=== PATIENT | male | born 1975 | race African-American/Black ===

== ENCOUNTER 2017-03-18 05:55 | Emergency (ER) | payer BC ==
[~2017-03-18] VITALS: Ht 180.3 cm; Wt 107.4 kg
[~2017-03-18 05:55] MED LIST: ALBU4TAB10 PO; AMBUNK PO; PRLSRUNK; ZYRUNK
[2017-03-18 05:57] VITALS: Ht 180.3 cm; Wt 107.4 kg
[2017-03-18] MEDS ORDERED: CETI10TA84 PO (06:40)
[2017-03-18] MEDS ORDERED: ESOM20CA PO (06:40)
[2017-03-18] MEDS ORDERED: VNTHFA/IN INH (06:40)
[2017-03-18] MEDS ORDERED: ONDANSETRON INJ 2 MG/ML 2 ML VIAL IV STA (06:44)
[2017-03-18] MEDS ORDERED: SODIUM CHLORIDE 0.9% 1000ML 1,000 ML IV ONE (06:44)
[2017-03-18] MEDS ORDERED: MoRPHine SULFATE 4 MG/ML 1 ML CARP\\VIAL IV STA ×2 (06:44→07:25)
[2017-03-18] MEDS ORDERED: SODIUM CHLORIDE 0.9% 1000ML 1,000 ML IV STA (06:44)
--- NOTE | 2017-03-18 06:53 | EMERGENCY ROOM VISIT NOTE ---
History Report prepared by Deo: Amado Ramey Under the Supervision of: Dr. Jeb Noriega M.D. First contact with patient: 06:40 Chief Complaint: ABDOMINAL PAIN Stated Complaint: SEVERE STOMACH PAIN Nursing Triage Summary: Patient reports abdominal pain since 0100. Patient tried using an enema but pain did not go away. Reports N/V. History of Present Illness The patient is a 41 year old male who presents to the Emergency Room with complaints of persistent and diffuse abdominal pain that began this morning at 0100, 5.5 hours prior to arrival. He also notes vomiting two times today since his abdominal pain began. The patient did have a normal bowel movement last night, but states that he attempted to use an Enema this morning. He denies noticing any black coloration or blood in this stool. This did not improve his pain. He denies any current back pain, chest pain, shortness of breath, fevers, or headaches. He does note having a Lap-Band placed roughly five years ago. Source of History: patient Onset: 5.5 hours [employer] Position: abdomen (Diffuse) Timing: other (Persistent) Associated Symptoms: + vomiting, No headache, No chest pain, No SOB, No back pain Review of Systems See HPI for pertinent positives & negatives. A total of 10 systems reviewed and were otherwise negative. Past Medical & Surgical Surgical Problems: (1) Hx of laparoscopic gastric banding Old medical records were reviewed. Nurse's notes were reviewed and I agree with. Family History No pertinent family history recorded. Social History Smoking Status: Never Smoker Drug Use: none Housing Status: lives with family Occupation Status: employed Current/Historical Medications Scheduled Cetirizine (Zyrtec), 10 MG PO DAILY Scheduled PRN Albuterol Hfa (Ventolin Hfa), 2 PUFFS INH Q6H PRN for SOB/Wheezing Esomeprazole Magnesium (Nexium), 20 MG PO DAILY PRN for Heartburn Allergies Uncoded Allergies: FISH (Allergy, Mild, RESP DIFF, 04/10/09) Physical Exam Vital Signs Date Time Temp Pulse Resp B/P (MAP) Pulse Ox O2 Delivery O2 Flow Rate FiO2 03/18/17 10:51 62 16 132/80 98 03/18/17 09:43 75 16 138/74 97 Room Air 03/18/17 08:07 52 16 150/92 97 Room Air 7/2/17 05:57 65 18 154/86 98 Room Air Physical Exam General: Well developed well nourished, uncomfortable appearing. Breathing comfortably on room air. Normal speech HEENT: Normal cephalic atraumatic. Pupils are equal round and reactive to light. Extraocular movements are intact. Oropharynx is pink with moist mucous membranes. No swelling of the mouth lips or tongue. Neck: Supple with a midline trachea. No meningeal signs or stiffness, no JVD or bruits. No Stridor. Chest: Clear to auscultation bilaterally. No wheezes or rhonchi. No increased work of breathing. Heart: regular rate and rhythm. Abdomen: Soft, diffusely tender. Nondistended without rebound guarding or rigidity. The lap band is palpable but nontender in the right upper abdomen Extremities: No cyanosis clubbing or edema. No calf tenderness or assymetry Spine/Back. Non tender to palpation. No CVA tenderness Skin: Good turgor without rashes. Neurologic exam: Cranial nerves two through 12 are intact. Motor and sensation are intact and symmetrical throughout. Medical Decision & Procedures ER Provider Diagnostic Interpretation: Radiology results as stated below per my review and radiologist interpretation: CT SCAN OF THE ABDOMEN AND PELVIS WITHOUT IV CONTRAST CLINICAL HISTORY: Generalized abdominal pain. COMPARISON STUDY: Abdominal ultrasound dated 08/07/2007. TECHNIQUE: CT scan of the abdomen and pelvis is performed from the lung bases to the proximal femora. Images are reviewed in the axial, sagittal, and coronal planes. IV contrast was not administered for this examination as per the referring clinician. Note that the examination was performed in suboptimal fashion without oral and IV contrast. Automated dose control exposure was utilized. CT DOSE: 725.04 mGy.cm FINDINGS: Lung bases: The heart is normal in size and without pericardial effusion. The lung bases are clear. Liver: The unenhanced liver is normal in size, contour, and attenuation. There is no intrahepatic biliary ductal dilatation. Gallbladder: Unremarkable. Spleen: Normal in size and attenuation. Pancreas: Unremarkable. Adrenal glands: Unremarkable. Kidneys: The unenhanced kidneys are normal in size and without hydronephrosis. There are no renal calculi identified. There is no evidence of contour deforming renal mass lesion. Abdominal vasculature: The abdominal aorta is normal in course and caliber. Stomach and bowel: Wall thickening is suggested in the distal esophagus. There is a moderate hiatal hernia. A gastric band is in place. The reservoir is noted in the right ventral abdominal wall. The duodenum is normal in configuration. No bowel obstruction is identified. The appendix is well-visualized and normal. Peritoneum: There is no intraperitoneal free air or abdominal ascites. There is a small fat-containing umbilical hernia. Lymphadenopathy: None. Pelvic viscera: The bladder, prostate, and seminal vesicles are normal as imaged. Skeletal structures: No lytic or blastic lesions are seen. IMPRESSION: 1. Suboptimal examination without oral and IV contrast. 2. There are no acute infectious or inflammatory findings in the abdomen or pelvis. 3. A gastric band is in place. No bowel obstruction is seen. 4. There is a moderate hiatal hernia. Circumferential wall thickening is suggested in the distal esophagus. Correlate clinically for evidence of esophagitis. If further assessment is desired then endoscopy would be appropriate. Electronically signed by: Jama Austin M.D. 03/18/2017 7:47 AM Dictated Date/Time: 03/18/2017 7:40 AM Laboratory Results 03/18/17 06:28 Red Blood Count 5.89, Mean Corpuscular Volume 86.4, Mean Corpuscular Hemoglobin 29.7, Mean Corpuscular Hemoglobin Concent 34.4, Mean Platelet Volume 10.9, Neutrophils (%) (Auto) 66.2, Lymphocytes (%) (Auto) 28.3, Monocytes (%) (Auto) 3.7, Eosinophils (%) (Auto) 1.2, Basophils (%) (Auto) 0.3, Neutrophils # (Auto) 4.31, Lymphocytes # (Auto) 1.84, Monocytes # (Auto) 0.24, Eosinophils # (Auto) 0.08, Basophils # (Auto) 0.02 03/18/17 06:28 Test 03/18/17 06:28 03/18/17 07:01 03/18/17 07:54 White Blood Count 6.51 K/uL (4.8-10.8) Red Blood Count 5.89 M/uL (4.7-6.1) Hemoglobin 17.5 g/dL (14.0-18.0) Hematocrit 50.9 % (42-52) Mean Corpuscular Volume 86.4 fL (80-100) Mean Corpuscular Hemoglobin 29.7 pg (25-34) Mean Corpuscular Hemoglobin Concent 34.4 g/dl (32-36) Platelet Count 260 K/uL (130-400) Mean Platelet Volume 10.9 fL (7.4-10.4) Neutrophils (%) (Auto) 66.2 % Lymphocytes (%) (Auto) 28.3 % Monocytes (%) (Auto) 3.7 % Eosinophils (%) (Auto) 1.2 % Basophils (%) (Auto) 0.3 % Neutrophils # (Auto) 4.31 K/uL (1.4-6.5) Lymphocytes # (Auto) 1.84 K/uL (1.2-3.4) Monocytes # (Auto) 0.24 K/uL (0.11-0.59) Eosinophils # (Auto) 0.08 K/uL (0-0.5) Basophils # (Auto) 0.02 K/uL (0-0.2) RDW Standard Deviation 41.5 fL (36.4-46.3) RDW Coefficient of Variation 13.1 % (11.5-14.5) Immature Granulocyte % (Auto) 0.3 % Immature Granulocyte # (Auto) 0.02 K/uL (0.00-0.02) Anion Gap 11.0 mmol/L (3-11) Est Creatinine Clear Calc Drug Dose 99.9 ml/min Estimated GFR () 85.9 Estimated GFR (Non- 74.1 BUN/Creatinine Ratio 10.1 (10-20) Calcium Level 9.5 mg/dl (8.5-10.1) Total Bilirubin 0.5 mg/dl (0.2-1) Direct Bilirubin mg/dl (0-0.2) Aspartate Amino Transf (AST/SGOT) 31 U/L (15-37) Alanine Aminotransferase (ALT/SGPT) 44 U/L (12-78) Alkaline Phosphatase 80 U/L (45-117) Total Protein 8.1 gm/dl (6.4-8.2) Albumin 4.7 gm/dl (3.4-5.0) Lipase 175 U/L (73-393) Bedside Troponin I < 0.030 ng/ml (0-0.045) Bedside Lactic Acid Venous 1.49 mmol/L (0.90-1.70) Laboratory studies as stated above per my review. Medications Administered Medications (Trade) Dose Ordered Sig/Estevan Route Start Time Stop Time Status Last Admin Dose Admin Morphine Sulfate (MoRPHine SULFATE INJ) 4 mg NOW STAT IV 03/18/17 06:44 03/18/17 06:46 DC 03/18/17 06:56 4 MG Ondansetron HCl (Zofran Inj) 4 mg NOW STAT IV 03/18/17 06:44 03/18/17 06:46 DC 03/18/17 06:56 4 MG Sodium Chloride 1,000 ml @ 999 mls/hr Q1H1M STAT IV 03/18/17 06:44 03/18/17 07:44 DC 03/18/17 06:56 999 MLS/HR Sodium Chloride 1,000 ml @ 150 mls/hr Q6H40M ONCE IV 03/18/17 06:44 03/18/17 11:22 DC 03/18/17 07:17 150 MLS/HR Morphine Sulfate (MoRPHine SULFATE INJ) 4 mg NOW STAT IV 03/18/17 07:25 03/18/17 07:26 DC 03/18/17 07:37 4 MG Al Hydroxide/Mg Hydroxide (Maalox Susp) 30 ml NOW STAT PO 03/18/17 08:18 03/18/17 08:20 DC 03/18/17 08:49 30 ML Lidocaine HCl (Viscous Lidocaine 2% Soln) 10 ml NOW STAT MT 03/18/17 08:18 03/18/17 08:20 DC 03/18/17 08:49 10 ML ECG Indication: abdominal pain Rate (beats per minute): 54 Rhythm: sinus bradycardia Findings: no acute ischemic change, no ectopy Comparison ECG Date: 02/24/2010 Change: no significant change ED Course 0640: Past medical records reviewed. The patient was evaluated in room A9, and a complete history and physical examination were performed. 0644: Ordered Sodium Chloride 1000 mL @ 150 mL/hr IV, Zofran 4 mg IV, Morphine Sulfate 4 mg IV. 0717: I checked on the patient at this time. He is still in discomfort and on his way to his CT scan. 0725: Ordered Morphine Sulfate 4 mg IV. 0818: Ordered Lidocaine HCL 10 mL, Maalox 30 mL PO. 0833: I reevaluated the patient at this time. He seems more comfortable. I will order a GI cocktail. 1035: Upon reevaluation, the patient is resting comfortable. I discussed the results and treatment plan with him. He verbalized agreement of the treatment plan. The patient was discharged home. Medical Decision Blood Pressure Screening: Patient was found to have a slightly elevated blood pressure due to circumstances. I do not believe that the patient requires hypertension monitoring. Medication Reconciliation: I attest that I have personally reviewed the patient' s current medication list. Differential Diagnosis include: infection, obstruction, Lap-Band complication, pancreatitis, gallbladder disease, colitis, electrolyte imbalance, cardiac disease. This patient comes in as described above. He was placed in room A9 .he's having diffuse abdominal pain and appears uncomfortable. He did have a lap band procedure done in [place] about 5 years ago. He has no peritonitis. IV access established was given morphine 4 mg IV as well as Zofran 4 mg IV as well as IV hydration. He did drive but assures me that he can get a ride. EKG and multiple blood tests was obtained as well as urinalysis and culture. Also ordered a CAT scan the abdomen and pelvis. He was reassessed frequently. He did require additional IV morphine and also only received a GI cocktail and felt significantly better. He has no white count or fever to suggest infection. He has no acute electrolyte or metabolic abnormalities. His blood work does not suggest liver or gallbladder pancreas disease. I did a noncontrast CT and there are findings likely consistent with esophagitis and hiatal hernia these certainly could be causing his symptoms. There are no other acute findings. The lap band appears in place. He does take Nexium but only takes it as needed he feels great would like to go home his abdomen is now benign and he is afebrile. I told her take 40 mg of Nexium once a day regularly and follow-up with his regular doctor GI doctor this week he may ultimately need endoscopy for further treatment and evaluation. I also encouraged him return to ER if: Fever chills, worsening symptoms, increasing pain or problems, any new problems concerns. The patient was happy with the plan and discharged to home. Impression Primary Impression: Diffuse abdominal pain Additional Impression: Esophagitis Scribe Attestation The scribe's documentation has been prepared under my direction and personally reviewed by me in its entirety. I confirm that the note above accurately reflects all work, treatment, procedures, and medical decision making performed by me. Departure Information Dispostion Home / Self-Care Referrals No Doctor, Assigned (PCP) Forms Call Back Authorization, HOME CARE DOCUMENTATION FORM, IMPORTANT VISIT INFORMATION Patient Instructions My [facility] [employer] Additional Instructions Rest. Drink plenty of fluids. Mild diet. May use Maalox if needed Use your Nexium daily, 40 mg once a day Your doctor or GI specialist this week for recheck. You will ultimately need endoscopy likely Return if: Fever or chills, worsening symptoms, shortness of breath, chest pain , any new problems or concerns. Problem Qualifiers
[2017-03-18 06:54] LABS: BASO % 0.3 %; BASO ABS # 0.02 K/uL (0-0.2); COMPLETE YES; EOS % 1.2 %; HEMATOCRIT 50.9 % (42-52); IG% 0.3 %; LYMPH % 28.3 %; LYMPH ABS # 1.84 K/uL (1.2-3.4); MEAN CELL VOLUME 86.4 fL (80-100); MEAN CORPUSCULAR HEMOGLOBIN 29.7 pg (25-34); MEAN CORPUSCULAR HGB CONC 34.4 g/dl (32-36); MEAN PLATELET VOLUME 10.9 fL (7.4-10.4); MONO % 3.7 %; NEUT % 66.2 %; PLATELET COUNT 260 K/uL (130-400); RED BLOOD COUNT 5.89 M/uL (4.7-6.1); WHITE BLOOD COUNT 6.51 K/uL (4.8-10.8)
[2017-03-18 07:16] LABS: ALKALINE PHOSPHATASE 80 U/L (45-117); ALT/SGPT 44 U/L (12-78); AST/SGOT 31 U/L (15-37); BLOOD UREA NITROGEN 12 mg/dl (7-18); BUN/CREATININE RATIO 10.1 (10-20); CALCIUM 9.5 mg/dl (8.5-10.1); CARBON DIOXIDE 23 mmol/L (21-32); CHLORIDE 106 mmol/L (98-107); GLUCOSE 96 mg/dl (70-99); POTASSIUM 3.8 mmol/L (3.5-5.1); SODIUM 140 mmol/L (136-145)
--- NOTE | 2017-03-18 07:48 | DIAGNOSTIC IMAGING REPORT ---
CT SCAN OF THE ABDOMEN AND PELVIS WITHOUT IV CONTRAST CLINICAL HISTORY: Generalized abdominal pain. COMPARISON STUDY: Abdominal ultrasound dated 08/07/2007. TECHNIQUE: CT scan of the abdomen and pelvis is performed from the lung bases to the proximal femora. Images are reviewed in the axial, sagittal, and coronal planes. IV contrast was not administered for this examination as per the referring clinician. Note that the examination was performed in suboptimal fashion without oral and IV contrast. Automated dose control exposure was utilized. CT DOSE: 725.04 mGy.cm FINDINGS: Lung bases: The heart is normal in size and without pericardial effusion. The lung bases are clear. Liver: The unenhanced liver is normal in size, contour, and attenuation. There is no intrahepatic biliary ductal dilatation. Gallbladder: Unremarkable. Spleen: Normal in size and attenuation. Pancreas: Unremarkable. Adrenal glands: Unremarkable. Kidneys: The unenhanced kidneys are normal in size and without hydronephrosis. There are no renal calculi identified. There is no evidence of contour deforming renal mass lesion. Abdominal vasculature: The abdominal aorta is normal in course and caliber. Stomach and bowel: Wall thickening is suggested in the distal esophagus. There is a moderate hiatal hernia. A gastric band is in place. The reservoir is noted in the right ventral abdominal wall. The duodenum is normal in configuration. No bowel obstruction is identified. The appendix is well-visualized and normal. Peritoneum: There is no intraperitoneal free air or abdominal ascites. There is a small fat-containing umbilical hernia. Lymphadenopathy: None. Pelvic viscera: The bladder, prostate, and seminal vesicles are normal as imaged. Skeletal structures: No lytic or blastic lesions are seen. IMPRESSION: 1. Suboptimal examination without oral and IV contrast. 2. There are no acute infectious or inflammatory findings in the abdomen or pelvis. 3. A gastric band is in place. No bowel obstruction is seen. 4. There is a moderate hiatal hernia. Circumferential wall thickening is suggested in the distal esophagus. Correlate clinically for evidence of esophagitis. If further assessment is desired then endoscopy would be appropriate. Electronically signed by: Jama Austin M.D. 03/18/2017 7:47 AM Dictated Date/Time: 03/18/2017 7:40 AM
[2017-03-18] MEDS ORDERED: ALUMINUM/MAGNESIUM SUSP 30 ML UDC PO STA (08:18)
[2017-03-18] MEDS ORDERED: LIDOCAINE HCL 2% VISC SOLN 20 ML UDC MT STA (08:18)
[2017-03-18 10:51] VITALS: BP 132/80; PULSE 62; O2SAT 98
== END 2017-03-18 10:55 | disposition home or self-care (01) ==
LOC: C.EDB 05:56 → C.EDA 10:55
DX: R10.9 Unspecified abdominal pain (principal); K20.9 Esophagitis, unspecified; R11.10 Vomiting, unspecified; R00.1 Bradycardia, unspecified; Z98.84 Bariatric surgery status